=== PATIENT | male | born 1970 | race Caucasian/White ===

== ENCOUNTER → 2020-11-29 | Outpatient (CLI) | payer MEDICARE, OTHER ==
[2020-11-29 15:54] LABS: RED BLOOD COUNT 4.53 M/UL (4.20-5.50); WHITE BLOOD COUNT 9.1 K/UL (4.5-11.0)
[2020-11-29 16:17] LABS: BUN/CREATININE RATIO 12 (0-10)
== END ==
LOC: LAB 15:18
DX: C71.9 Malignant neoplasm of brain, unspecified (principal)
CPT/HCPCS: 36415; 80053; 85025

== ENCOUNTER → 2021-01-02 | Outpatient (CLI) | payer MEDICARE, OTHER ==
[2021-01-02 16:47] LABS: HEMOGLOBIN 15.7 gm/dl (14.0-17.5); RED BLOOD COUNT 4.7 M/UL (4.20-5.50); WHITE BLOOD COUNT 9.1 K/UL (4.5-11.0)
[2021-01-02 17:03] LABS: BUN/CREATININE RATIO 15 (0-10)
== END ==
LOC: LAB 13:43
PROVIDERS: Psychiatry & Neurology Neurology
DX: C71.9 Malignant neoplasm of brain, unspecified (principal)
CPT/HCPCS: 80053; 85025

== ENCOUNTER → 2021-03-30 | Outpatient (CLI) | payer MEDICARE ==
[2021-03-30 12:10] LABS: HEMOGLOBIN 15.1 gm/dl (14.0-17.5); RED BLOOD COUNT 4.55 M/UL (4.20-5.50); WHITE BLOOD COUNT 9.8 K/UL (4.5-11.0)
[2021-03-30 12:44] LABS: BUN/CREATININE RATIO 11 (0-10)
== END ==
LOC: LAB 11:19
PROVIDERS: Psychiatry & Neurology Neurology
DX: C71.9 Malignant neoplasm of brain, unspecified (principal)
CPT/HCPCS: 36415; 36591; 80053; 85025

== ENCOUNTER → 2021-05-31 | Outpatient (CLI) | payer OTHER ==
[2021-05-31 09:56] LABS: HEMOGLOBIN 14.8 gm/dl (14.0-17.5); RED BLOOD COUNT 4.45 M/UL (4.20-5.50); WHITE BLOOD COUNT 10.5 K/UL (4.5-11.0)
[2021-05-31 10:19] LABS: BUN/CREATININE RATIO 10 (0-10)
== END ==
LOC: LAB 09:26
PROVIDERS: Psychiatry & Neurology Neurology
DX: C71.9 Malignant neoplasm of brain, unspecified (principal)
CPT/HCPCS: 36415; 80053; 85025

== ENCOUNTER 2021-06-30 19:18 | Emergency (ER) | payer OTHER ==
[~2021-06-30] VITALS: Ht 188 cm; Wt 113.4 kg
[2021-06-30 19:46] LABS: RED BLOOD COUNT 4.58 M/UL (4.20-5.50); WHITE BLOOD COUNT 11.8 K/UL (4.5-11.0)
[2021-06-30 20:06] LABS: BUN/CREATININE RATIO 9 (0-10)
[2021-07-01 07:01] LABS: HEMOGLOBIN 15.5 gm/dl (14.0-17.5); RED BLOOD COUNT 4.68 M/UL (4.20-5.50); WHITE BLOOD COUNT 9.8 K/UL (4.5-11.0)
[2021-07-01 07:20] LABS: BUN/CREATININE RATIO 11 (0-10)
[2021-07-03 05:17] LABS: HEMOGLOBIN 14.8 gm/dl (14.0-17.5); RED BLOOD COUNT 4.79 M/UL (4.20-5.50)
[2021-07-03 05:18] LABS: WHITE BLOOD COUNT 14.7 K/UL (4.5-11.0)
[2021-07-03 05:37] LABS: BUN/CREATININE RATIO 22 (0-10)
[2021-07-03] MEDS ORDERED: LAMOTRIGINE25 MG PO (10:57)
[2021-07-03] MEDS ORDERED: TEMOZOLOMIDE250 MG PO (11:00)
== END 2021-07-04 12:00 | disposition other institution (70) ==
LOC: ER1 19:18
PROVIDERS: Emergency Medicine; Family Medicine
DX: G40.909 Epilepsy, unspecified, not intractable, without status epilepticus (principal); C71.9 Malignant neoplasm of brain, unspecified; F17.200 Nicotine dependence, unspecified, uncomplicated; Z20.822 Contact with and (suspected) exposure to COVID-19
CPT/HCPCS: 36600; 70450; 71045; 80048; 80053; 80307; 81001; 82140; 82550; 82553; 82803; 83605; 83690; 83735; 83874; 83880; 84100; 84439; 84443; 84484; 85025; 85610; 85730; 87040; 93005; 96374; 96375; 96376; 99285; G0480; J1100; J2920; J2930; U0002

== ENCOUNTER 2021-09-21 10:56 | Emergency (ER) | payer OTHER ==
[~2021-09-21 10:56] MED LIST: LAMOTRIGINE25 MG PO; TEMOZOLOMIDE250 MG PO
[2021-09-21 13:26] LABS: HEMOGLOBIN 14.8 gm/dl (14.0-17.5); RED BLOOD COUNT 4.67 M/UL (4.20-5.50); WHITE BLOOD COUNT 9.7 K/UL (4.5-11.0)
[2021-09-21 13:50] LABS: BUN/CREATININE RATIO 14 (0-10)
== END 2021-09-21 16:35 | disposition home or self-care (01) ==
LOC: ER1 10:56
PROVIDERS: Family Medicine
DX: C71.9 Malignant neoplasm of brain, unspecified (principal); R10.30 Lower abdominal pain, unspecified; B35.6 Tinea cruris; F17.210 Nicotine dependence, cigarettes, uncomplicated
CPT/HCPCS: 76870; 80053; 81001; 83605; 85025; 99284

== ENCOUNTER 2021-11-02 11:07 | Emergency (ER) | payer OTHER ==
[2021-11-02] MEDS ORDERED: VALTREX1000 MG PO (14:02)
== END 2021-11-02 14:54 | disposition home or self-care (01) ==
LOC: ER1 11:07
DX: B02.33 Zoster keratitis (principal); C71.9 Malignant neoplasm of brain, unspecified; F17.200 Nicotine dependence, unspecified, uncomplicated
CPT/HCPCS: 99282

== ENCOUNTER 2022-03-05 16:48 | Emergency (ER) | payer OTHER ==
[~2022-03-05 16:48] MED LIST changes: +VALTREX1000 MG PO
[2022-03-05] MEDS ORDERED: HYDROCODON-ACE1 EAC4 PO (20:46)
== END 2022-03-05 21:45 | disposition home or self-care (01) ==
LOC: ER1 16:48
DX: M79.641 Pain in right hand (principal); G89.29 Other chronic pain
CPT/HCPCS: 73130; 73620; 93005; 99283

== ENCOUNTER → 2022-03-12 | Outpatient (CLI) | payer OTHER ==
[~2022-03-12] MED LIST changes: +HYDROCODON-ACE1 EAC4 PO
== END ==
LOC: MRI 13:45
DX: C71.9 Malignant neoplasm of brain, unspecified (principal); C71.3 Malignant neoplasm of parietal lobe
CPT/HCPCS: 70553; 93971; A9577

== ENCOUNTER 2022-04-10 12:19 | Emergency (ER) | payer OTHER ==
[2022-04-10 15:50] LABS: HEMOGLOBIN 15.6 gm/dl (14.0-17.5); RED BLOOD COUNT 4.77 M/UL (4.20-5.50); WHITE BLOOD COUNT 10.2 K/UL (4.5-11.0)
[2022-04-10 16:06] LABS: BUN/CREATININE RATIO 12 (0-10)
[2022-04-10] MEDS ORDERED: LOTRIMIN CREAM45 GM PV (16:44)
[2022-04-10] MEDS ORDERED: DIFLUCAN200 MG PO (16:44)
== END 2022-04-10 16:55 | disposition home or self-care (01) ==
LOC: ER1 12:19
PROVIDERS: Emergency Medicine
DX: B37.2 Candidiasis of skin and nail (principal); Z85.841 Personal history of malignant neoplasm of brain
CPT/HCPCS: 80053; 85025; 99283